=== PATIENT | male | born 1985 | race Caucasian/White ===

== ENCOUNTER 2020-03-09 17:20 | Emergency (ER) | payer BC ==
[2020-03-09] MEDS ORDERED: Ketorolac 60 MG/2 ML SDV IM ONE (18:55)
[2020-03-09] MEDS ORDERED: Orphenadrine 100 MG Tab.ER PO ONE (18:55)
--- NOTE | 2020-03-09 19:00 | EDM.PDOC ---
ED HPI GENERAL MEDICAL PROBLEM - General Chief Complaint: Back Pain or Injury Stated Complaint: [facility] Time Seen by Provider: 03/09/20 18:48 Source of Information: Reports: Patient, RN Notes Reviewed History Limitations: Reports: No Limitations - History of Present Illness INITIAL COMMENTS - FREE TEXT/NARRATIVE: Patient is a 34-year-old male who presents to the ED by [facility] for evaluation of his left lower back pain. Patient notes that he had back pain that started yesterday, but did worsen today. He states this is a stabbing pain in nature, does seem to come and go in waves. He states the pain is a 10 out of 10 when it is at its worst, and a 8 out of 10 when it is just there. Movement seems to really bother this, he has not noted anything that makes this better. This does radiate down his left leg as well. He has no numbness or tingling into his toes, and can move his foot in all range of motion without much difficulty. He denies any trauma or injury to his back. He does not have a history of low back pain. He denies any fever/chills, cough/shortness of breath, nausea/vomiting/diarrhea. Back Pain Score (Numeric/FACES): 10 - Related Data Allergies Allergy/AdvReac Type Severity Reaction Status Date / Time No Known Allergies Allergy Verified 03/09/20 17:33 Home Meds: Home Meds Hydrocodone/Acetaminophen [Hydrocodone-Acetamin 10-325 mg] 1 each PO Q6H PRN #12 tablet 03/09/20 [Rx] Orphenadrine [Norflex] 100 mg PO BID PRN #20 tab 03/09/20 [Rx] predniSONE 20 mg PO ASDIRECTED #15 tab 03/09/20 [Rx] Past Medical History - Past Health History Medical/Surgical History: Denies Medical/Surgical History Endocrine/Metabolic History: Reports: Obesity/BMI 30+ Social & Family History - Tobacco Use Smoking Status *Q: Never Smoker ED ROS GENERAL - Review of Systems Review Of Systems: Comprehensive ROS is negative, except as noted in HPI. ED EXAM,LOWER BACK PAIN/INJURY - Physical Exam Exam: See Below Exam Limited By: No Limitations General Appearance: Alert, WD/WN, No Apparent Distress Respiratory/Chest: No Respiratory Distress, Lungs Clear, Normal Breath Sounds, No Accessory Muscle Use, Chest Non-Tender Cardiovascular: Normal Peripheral Pulses, Regular Rate, Rhythm, No Murmur GI/Abdominal: Normal Bowel Sounds, Soft, Non-Tender, No Distention, No Mass Extremities: Normal Inspection, Normal Capillary Refill Neurological: Alert, Normal Mood/Affect, Normal Dorsiflexion, Normal Plantar Flexion, No Motor/Sensory Deficits, Oriented x 3, Straight Leg Raise (L). No: Straight Leg Raise (R), Saddle Anesthesia Psychiatric: Normal Affect, Normal Mood Skin Exam: Warm, Dry, Intact, Normal Color, No Rash Course - Vital Signs Last Recorded V/S: Last Vital Signs Temp 97.8 F 03/09/20 17:29 Pulse 100 03/09/20 17:29 Resp 18 03/09/20 17:29 BP 109/68 03/09/20 17:29 Pulse Ox 98 03/09/20 17:29 - Orders/Labs/Meds Meds: Medications Discontinued Medications Generic Name Dose Route Start Last Admin Trade Name Freq PRN Reason Stop Dose Admin Hydromorphone HCl 0.5 mg 03/09/20 19:10 03/09/20 20:11 Dilaudid IVPUSH 03/09/20 19:11 0.5 mg ONETIME ONE Administration Ketorolac Tromethamine 60 mg 03/09/20 18:55 03/09/20 20:11 Toradol IM 03/09/20 18:56 Not Given ONETIME ONE Ketorolac Tromethamine 30 mg 03/09/20 19:09 03/09/20 20:11 Toradol IVPUSH 03/09/20 19:10 30 mg ONETIME ONE Administration Orphenadrine Citrate 100 mg 03/09/20 18:55 03/09/20 20:11 Norflex PO 03/09/20 18:56 100 mg ONETIME ONE Administration - Re-Assessments/Exams Free Text/Narrative Re-Assessment/Exam: 03/09/20 19:19 Patient presents to the ED for the evaluation of his back pain, due to the acuity of patient's in the ER, he did have a prolonged wait time. I have ordered 30 mg IV Toradol, 0.5 IV Dilaudid, and 100 mg p.o. Norflex for initial management. 03/09/20 20:36 Patient did just receive his medications around 8:00, I did reassess him at the bedside, states he is getting pain relief, but he still has quite a bit of pain. But he has been able to move a little bit more than he did prior to this. Which is hopeful. We will observe him in the ER for little bit longer, and plan to get him some prednisone, Norflex and something for pain. Departure - Departure Time of Disposition: 20:39 Disposition: Home, Self-Care 01 Condition: Good Clinical Impression: Sciatica of left side - Discharge Information *PRESCRIPTION DRUG MONITORING PROGRAM REVIEWED*: Yes *COPY OF PRESCRIPTION DRUG MONITORING REPORT IN PATIENT SPENCER: No Instructions: Sciatica, [id number] Referrals: PCP,Unknown [Primary Care Provider] - Forms: ED Department Discharge Additional Instructions: You have been evaluated in the ED for your low back pain. You seem to be suffering from sciatica, which is an aggravation of the sciatic nerve, on your left side. This is causing the pain that is shooting down your left leg. Please use ice/heat as tolerated to the affected area. Please try to elevate the affected area to relieve swelling. You may take Tylenol 500 mg or ibuprofen 600mg q6 hrs for pain relief. Please do so until you have a tolerable level of pain with activity. Do not exceed 4000mg Tylenol or 3200mg ibuprofen in a 24 hour time period. You were given a prescription for prednisone (steroid for nerve inflammation), Norflex (muscle relaxer) please take these medications as prescribed. You were given a prescription for a strong pain medication, hydrocodone/acetaminophen 10/325mg, please take 1 tab every 6 hours as needed for pain not relieved by Tylenol or ibuprofen alone. Please note this medication does contain Tylenol in it, so do not take more than 4000 mg in a 24- hour time span. These medications can be addictive, so please take as few as possible to achieve adequate pain control. These meds can also be quite constipating, recommend that you increase your oral fluid intake and take a stool softener like MiraLAX while taking these medications. Do not drive while taking this medication. Please return to ED if your symptoms should change or worsen. Sepsis Event Note (ED) - Evaluation Sepsis Screening Result: No Definite Risk - Focused Exam Vital Signs: Vital Signs Temp Pulse Resp BP Pulse Ox 03/09/20 17:29 97.8 F 100 18 109/68 98
[2020-03-09] MEDS ORDERED: Ketorolac 30 MG/ML SDV IVPUSH ONE (19:09)
[2020-03-09] MEDS ORDERED: HYDROmorphone 0.5 MG/0.5 ML Syringe IVPUSH ONE ×2 (19:10→21:06)
== END 2020-03-09 21:19 | disposition home or self-care (01) ==
LOC: JD.ED 17:20
DX: M54.42 Lumbago with sciatica, left side (principal); E66.9 Obesity, unspecified
CPT/HCPCS: 96374; 96375; 96376; 99284; A9270; J1170; J1885; 99282